=== PATIENT | female | born 1990 | race Caucasian/White ===

== ENCOUNTER 2019-07-23 12:48 | Emergency (ER) | payer BC, OTHER ==
[2019-07-23 13:09] VITALS: BP 148/100
[2019-07-23] MEDS ORDERED: Tetan/Diph/Pertus SYR(Tdap)* 0.5 ML SYR(BOOSTRIX) use SYR contains LATEX IM ONE (13:15)
--- NOTE | 2019-07-23 13:16 | ED ---
- HPI Summary HPI Summary: 28 year old F presenting to [facility] with a chief complaint of a needle stick injury to her left middle finger which occurred earlier today. Patient reports that the source's labwork from yesterday was negative for HIV and Hepatitis. The patient rates the pain 0/10 in severity. Symptoms aggravated by nothing. Symptoms alleviated by nothing. The patient cleaned her wound after her injury. Medication list reviewed. Allergy list reviewed. - History of Current Complaint Chief Complaint: EDExposureBodyFluid Stated Complaint: NEEDLE STICK Time Seen by Provider: 07/23/19 13:09 - Source Information HIV: No Hepatitis: No PMH/Surg Hx/FS Hx/Imm Hx Endocrine/Hematology History: Denies: Hx Diabetes Cardiovascular History: Denies: Hx Hypertension - Surgical History Surgical History: Yes Surgery Procedure, Year, and Place: wisdom teeth Infectious Disease History: No Infectious Disease History: Denies: History Other Infectious Disease, Traveled Outside the in Last 30 Days - Family History Known Family History: Positive: Diabetes - Social History Alcohol Use: Occasionally Hx Substance Use: No Substance Use Type: Reports: None Hx Tobacco Use: No Smoking Status (MU): Never Smoked Tobacco Review of Systems Positive: Other - Needlestick injury left middle finger All Other Systems Reviewed And Are Negative: Yes Physical Exam - Summary Physical Exam Summary: General: Well appearing, no distress HEENT: PERRL Cardiovascular: Skin is well perfused Pulmonary: No respiratory distress, no tachypnea Abdomen: Non-distended Skin: Puncture wound left DIP of middle finger. MSK: No edema Psych: Normal affect Neuro: A&Ox3 Triage Information Reviewed: Yes Vital Signs On Initial Exam: Initial Vitals Temp Pulse Resp BP Pulse Ox 98.2 F 78 16 148/100 100 07/23/19 13:07 07/23/19 13:07 07/23/19 13:07 07/23/19 13:07 07/23/19 13:07 Vital Signs Reviewed: Yes Procedures - Sedation Patient Received Moderate/Deep Sedation with Procedure: No Diagnostics - Vital Signs Vital Signs Temp Pulse Resp BP Pulse Ox 07/23/19 13:07 98.2 F 78 16 148/100 100 - Laboratory Lab Statement: Any lab studies that have been ordered have been reviewed, and results considered in the medical decision making process. Needlestick Course/Dx - Course Course Of Treatment: 28 y/o F p/w needle stick to finger. Source HIV and Hep C negative. Sent blood work. F/u occupational health - Diagnoses Provider Diagnoses: Needlestick injury accident - Critical Care Time Critical Care Statement: Critical care time is provided exclusive of any time spent performing procedures. Discharge ED - Sign-Out/Discharge Documenting (check all that apply): Patient Departure - Discharge Plan Condition: Stable Disposition: HOME Patient Education Materials: Needle Stick Injuries (ED) Referrals: Mu Resendiz, [facility] [employer] [Primary Care Provider] - Additional Instructions: You were seen for needle stick injury. Your HIV and hepatitis C tests are pending. Please follow up with occupational health and your doctor. - Billing Disposition and Condition Condition: STABLE Disposition: Home - Attestation Statements Document Initiated by Keeleyibe: Yes Documenting Scribe: Jessica Machado Provider For Whom Keeleyibe is Documenting (Include Credential): Keyshawn Carrion MD Scribe Attestation: Jessica Heredia, scribed for Keyshawn Carrion MD on 07/23/19 at 1343. Scribe Documentation Reviewed: Yes Provider Attestation: The documentation as recorded by the Jessica paige accurately reflects the service I personally performed and the decisions made by Keyshawn gonzales MD Status of Scribe Document: Viewed
[2019-07-23 15:08] LABS: HIV 4th Generation Nonreactive (Nonreactive)
[2019-07-23 15:20] LABS: Hepatitis B Surface Antigen Nonreactive (Nonreactive)
[2019-07-23 15:37] LABS: Hepatitis B Surface Ab Not Immune (Immune)
[2019-07-23 15:38] LABS: Hepatitis C Antibody Negative (Negative)
== END 2019-07-23 14:52 | disposition home or self-care (01) ==
LOC: ED 12:48
DX: S61.233A Puncture wound without foreign body of left middle finger without damage to nail, initial encounter (principal); W46.1XXA Contact with contaminated hypodermic needle, initial encounter; Y92.9 Unspecified place or not applicable; Y92.239 Unspecified place in hospital as the place of occurrence of the external cause
CPT/HCPCS: 36415; 86706; 86803; 87340; 87389; 90471; 90715; 99282

== ENCOUNTER 2020-08-14 15:28 | Observation (INO) ==
[2020-08-14] MEDS ORDERED: NS 0.9% 1000 ml BAG 1,000 ML IV ONE (15:58)
[2020-08-14 16:25] LABS: ABS Eosinophils 0.1 10^3/ul (0-0.6); ABS Lymphocytes 2.4 10^3/ul (1.0-4.8); ABS Monocytes 0.5 10^3/ul (0-0.8); ABS Neutrophils 4.1 10^3/ul (1.5-7.7); Eosinophil % 1.3 %; Hematocrit 39 % (35-47); Hemoglobin 13.2 g/dL (12.0-16.0); Lymphocyte % 32.9 %; Mean Corpuscular HGB Conc 34 g/dL (31-36); Mean Corpuscular Hemoglobin 32 pg (27-31); Mean Corpuscular Volume 93 fL (80-97); Mean Platelet Volume 7.5 fL (7.4-10.4); Platelet Count 281 10^3/uL (150-450); Red Blood Count 4.14 10^6 /uL (3.70-4.87); Red Cell Distribution Width 13 % (10-15); White Blood Count 7.2 10^3/uL (3.5-10.8)
[2020-08-14 16:41] LABS: ALT 14 U/L (7-52); Albumin 4.1 g/dL (3.2-5.2); Albumin/Globulin Ratio 1.3 (1-3); Alkaline Phosphatase 47 U/L (34-104); Blood Urea Nitrogen 16 mg/dL (6-24); CO2 Carbon Dioxide 20 mmol/L (22-32); Calcium 9.2 mg/dL (8.6-10.3); Chloride 106 mmol/L (101-111); EGFR African American 100.4 (>60); Globulin 3.1 g/dL (2-4); Glucose 114 mg/dL (70-100); Sodium 135 mmol/L (135-145); Total Protein 7.2 g/dL (6.4-8.9)
[2020-08-14 16:57] LABS: Anion Gap 9 mmol/L (2-11)
[2020-08-14 19:21] LABS: Potassium Redraw 3.9 mmol/L (3.5-5.0)
[2020-08-14 20:06] LABS: Vitamin D Total 25(OH) 26.3 ng/mL (20-50)
[2020-08-14] MEDS ORDERED: Magnesium Hydroxide LIQ 30 ML UDC PO PRN (20:37)
[2020-08-14] MEDS ORDERED: Al Hydrox/Mg Hydrox/Simet LIQ 30 ML UDC PO PRN (20:37)
[2020-08-14] MEDS ORDERED: Ondansetron 4 mg VIAL 2 MG/ML 2 ml VIAL IV PRN (20:37)
[2020-08-14 21:44] LABS: Folate 14.73 ng/mL (5.90-24.80)
[2020-08-15 09:31] LABS: TSH Ultra Thyroid Stim Horm 1.05 mcIU/mL (0.34-5.60)
[2020-08-15] MEDS ORDERED: Cyanocobalamin INJ 1,000 MCG/ML VIAL 1 ML VIAL IM ONE (10:30)
[2020-08-15] MEDS ORDERED: Gadoteridol (CONTRAST) 279.3 MG/ML 10 ML IV ONE (13:23)
[2020-08-15 15:05] VITALS: BP 145/89
== END 2020-08-15 18:00 | disposition home or self-care (01) ==
LOC: ED 15:28 → MEDTELE 15:28
PROVIDERS: ADMIT Hospitalist; ATTEND Internal Medicine

== ENCOUNTER 2020-08-15 22:36 | Inpatient (IN) ==
[2020-08-16] MEDS ORDERED: Iohexol 350 (CONTRAST) 500 ML MDV IV ONE (00:50)
[2020-08-16] MEDS ORDERED: Prochlorperazine 5 mg/ml 2 ml VIAL (10 mg) IV ONE (01:42)
[2020-08-16] MEDS ORDERED: Morphine 4 MG/ML VIAL (1 ml) IV ONE (02:12)
[2020-08-16] MEDS ORDERED: Prochlorperazine 5 mg/ml 2 ml VIAL (10 mg) IV PRN ×2 (03:40→08:00)
[2020-08-16] MEDS ORDERED: Morphine 2 MG/ML SYRINGE IV PRN (03:43)
[2020-08-16] MEDS: NS 0.9% 1000 ml BAG 1,000 ML IV SCH ×2 (06:19→06:46)
[2020-08-16 06:46] VITALS: BP 134/87
[2020-08-17] MEDS ORDERED: Aspirin EC 81 mg TAB.EC (enteric coated) PO SCH (09:00)
== END 2020-08-16 10:02 | disposition short-term general hospital (02) | DRG 46 ==
LOC: ED 22:36 → MEDTELE 08-16 03:48
PROVIDERS: ADMIT Hospitalist; ATTEND Internal Medicine